=== PATIENT | male | born 1945 | race Caucasian/White ===

== ENCOUNTER 2016-02-23 09:57 | Emergency (ER) | payer OTHER ==
[~2016-02-23] VITALS: Ht 188 cm; Wt 107.0 kg
[~2016-02-23 09:57] MED LIST: ACIDOPHILUS1 CAP PO; AQUAPHOR396 GM TOP; CYMBALTA30 M1 PO; ELOCON0.1% TOP; FOLIC ACID 1 MG PO; GLIMEPIRIDE2 MG PO; KEFLEX500 M1 PO; LYRICA100 M1 PO; MEDROL4 M2 PO; METFORMIN HCL500 M3 PO; PERCOCET 325 MG1 TA2 PO; PRILOSEC 20MG C20 MG PO; PROAIR HFA8.5 GM INH; SOMA 350MG TAB350 MG PO; TEMOVATE15 GM TOP; TRIAMCINOLONE A15 G3 TOP; ULTRAM(MONOGRAP50 MG PO; VICODIN 5-3001 EACH PO; VICODIN5-300 PO; ZITHROMAX250 M2 PO
--- NOTE | 2016-02-23 10:27 | ED ANKLE/FOOT INJURY COMPLAINT ---
History of Present Illness General Chief Complaint: Foot or Ankle Injury Stated Complaint: R TOE INFECTED HX OF DIABETES Source: patient Exam Limitations: no limitations Vital Signs & Intake/Output Vital Signs & Intake/Output Vital Signs Date Time Temp Pulse Resp B/P Pulse O2 O2 Flow FiO2 Ox Delivery Rate 02/22 1230 99.1 95 140/81 98 02/22 1115 97 02/22 1005 98.1 88 20 136/91 97 Room Air Room Air Allergies Coded Allergies: morphine (ITCHING 07/26/15) Reconcile Medications Albuterol Sulfate (Proair Hfa) 90 MCG HFA.AER.AD 2 PUF INH Q4-6 PRN PRN DYSPNEA WITH SPACER Cephalexin (Keflex) 500 MG CAPSULE 1 CAP PO TID INFECTION Duloxetine Hydrochloride (Cymbalta) 30 MG CAPSULE.DR 1 CAP PO DAILY neuropathic pain (Reported) Glimepiride 2 MG TABLET 1 TAB PO DAILY diabetes (Reported) Hydrocodone/Acetaminophen (Vicodin 5-300 MG Tablet) 1 EACH TABLET 1 TAB PO BID CHRONIC SHOULDER PAIN (Reported) Metformin HCl 500 MG TABLET 1 TAB PO BID diabetes (Reported) Omeprazole (Prilosec) 20 MG CAPSULE.DR 1 CAP PO DAILY GERD (Reported) Oxycodone HCl/Acetaminophen (Percocet 5-325 MG Tablet) 5 MG-325 MG TABLET 1 TAB PO BID PRN PAIN Pregabalin (Lyrica) 100 MG CAPSULE 1 CAP PO TID neuropathic pain (Reported) Sulfamethoxazole/Trimethoprim (Bactrim Ds Tablet) 800 MG-160 MG TABLET 1 TAB PO BID CELLULITIS Triage Note: PT TO ED WITH C/O RIGHT BIG TOE PAIN AND INFECTION, HAS BEEN SEEING CLINICAL LABORATORY MEDICAL DIRECTOR [facility]. CALLED THIS AM BUT TOLD TO COME TO ED. Triage Nurses Notes Reviewed? yes HPI: 71-year-old male arrived through triaged to room 2 for evaluation of right great toe pain, swelling and redness that he has had for a few weeks. He has been under the care of company laundry worker in [place] that goes by the name of Dr. Mccrary. 6 months ago he had a nail go into the bottom of his great toe. It has been nonhealing and he started to go to the company laundry worker. He has never had blood work or x-rays but has had antibiotics with no improvement. Today he is here because the pain is unbearable 10 out of 10 aching throbbing. (DARCY MEADE APRN) Past History Travel History Traveled to [place] past 21 day No Medical History Any Pertinent Medical History? see below for history Neurological: NONE EENT: NONE Cardiovascular: hyperlipidemia Respiratory: bronchitis Gastrointestinal: diverticulitis Hepatic: NONE Renal: NONE Musculoskeletal: chronic back pain, osteoarthritis Psychiatric: NONE Endocrine: diabetes Blood Disorders: NONE Cancer(s): NONE LEVELER/Reproductive: NONE History of MRSA: No History of VRE: No History of CDIFF: No Surgical History Surgical History: non-contributory Psychosocial History Who do you live with Spouse Services at Home None What is your primary language Urdu Tobacco Use: Current Daily Use Daily Tobacco Use Amount/Type: => 5 Cigarettes daily ETOH Use: denies use Illicit Drug Use: denies illicit drug use Family History Family History, If Any: FATHER Hypotension BROTHER FH: arrhythmia Hx Contributory? No (DARCY MEADE APRN) Review of Systems Review of Systems Constitutional: Reports: chills. EENTM: Reports: no symptoms. Respiratory: Reports: no symptoms. Cardiovascular: Reports: no symptoms. GI: Reports: no symptoms. Genitourinary: Reports: no symptoms. Musculoskeletal: Reports: joint pain (right great toe). Skin: Reports: no symptoms. Neurological/Psychological: Reports: no symptoms. Hematologic/Endocrine: Reports: no symptoms. Immunologic/Allergic: Reports: no symptoms. All Other Systems: Reviewed and Negative (DARCY MEADE APRN) Physical Exam Physical Exam General Appearance: well developed/nourished, mild distress Head: atraumatic Eyes: Bilateral: PERRL, EOMI. Ears, Nose, Throat: normal pharynx, normal ENT inspection, hearing grossly normal Neck: normal inspection, supple Cardiovascular/Respiratory: regular rate/rhythm Back: normal inspection Leg/Knee/Thigh Left: normal range of motion, normal inspection Leg/Knee/Thigh Right: normal range of motion, normal inspection Ankle Left: normal inspection, normal range of motion Ankle Right: erythema, soft tissue tenderness, swelling, tenderness Neuro/Vascular: normal motor function, normal sensation Psychiatric: awake, alert, oriented x 3 Skin: intact, normal color, warm/dry Diagram Feet Bottom: 1) Erythema with a blister 2) Ulcer noted size of a quarter, closed No erythema Feet Top: 1) Erythema, tenderness, blister (HALINA MCLEOD,DARCY) Progress Differential Diagnosis: cellulitis, gout, osteomyelitis Plan of Care: Orders Procedure Date/time Status BLOOD CULTURE 02/22 1041 Active COMPREHENSIVE METABOLIC PANEL 02/22 1041 Complete CBC WITHOUT DIFFERENTIAL 02/22 1041 Complete Laboratory Tests 02/23/16 1050: Anion Gap 15, Estimated GFR > 60, BUN/Creatinine Ratio 20.0, Glucose 277 H, Calcium 8.8, Total Bilirubin 1.0, AST 32, ALT 52, Alkaline Phosphatase 82, Total Protein 6.8, Albumin 4.0, Globulin 2.8, Albumin/Globulin Ratio 1.4, CBC w Diff NO MAN DIFF REQ, RBC 4.24 L, MCV 89.9, MCH 30.8, RDW 14.5, MPV 7.7, Gran % 77.3 H, Lymphocytes % 14.3 L, Monocytes % 5.9, Eosinophils % 1.5, Basophils % 1.0, Absolute Granulocytes 5.9, Absolute Lymphocytes 1.1 L, Absolute Monocytes 0.5, Absolute Eosinophils 0.1, Absolute Basophils 0.1, PUBS MCHC 34.3 Microbiology 02/22 1050 BLOOD: Blood Culture - RECD 02/22 1041 BLOOD: Blood Culture - ORD Diagnostic Imaging: Viewed by Me: Radiology Read. Discussed w/RAD: Radiology Read. Comments: PATIENT: AUGUSTUS RUBI PRESENT AGE: 71 PATIENT ACCOUNT NO: [id number] : 47 LOCATION: [facility] ORDERING PHYSICIAN: DARCY MEADE APRN SERVICE DATE: 02/23/16 EXAM TYPE: RAD - XRY-TOES, RIGHT EXAMINATION: XR TOE, RIGHT CLINICAL INFORMATION: Diabetes mellitus. Great toe pain with question osteomyelitis COMPARISON: None. TECHNIQUE: AP film of the right foot and 2 views of the right great toe FINDINGS: There is erosive change with sclerosis and soft tissue calcification involving the medial aspect of the first metatarsal head extending to the joint. This could be related to changes of chronic osteomyelitis or gout. No acute fracture or dislocation is identified. There is a marginal erosion at the first tarsometatarsal joint, medial aspect, without associated soft tissue swelling. There is some deformity and hypertrophic change at the base of the proximal phalanx of the left fifth toe at the fifth metatarsophalangeal joint. There is arterial vascular calcification IMPRESSION: Erosive change with sclerosis and soft tissue calcification at the first metatarsal head medial aspect could be related to chronic osteomyelitis or gout. No acute fracture or dislocation DICTATED BY: LESTER BEAN MD DATE/TIME DICTATED:02/23/161155 METAL MOLDER:EARLENE DATE/TIME TRANSCRIBED:02/23/161155 CONFIDENTIAL, DO NOT COPY WITHOUT APPROPRIATE AUTHORIZATION. <Electronically signed in Other Vendor System> SIGNED BY: LESTER BEAN MD 02/22 1205 Explain results of x-ray and blood work to the patient. Antibiotics and pain medication will be given. Encouraged to follow up with his primary care provider for better diabetes management titer glycemic control. (DARCY MEADE APRN) Departure Departure Time of Disposition: 1213 Disposition: HOME OR SELF CARE Condition: Stable Clinical Impression Primary Impression: Cellulitis Qualifiers: Site of cellulitis: other site Qualified Code: L03.818 - Cellulitis of other sites Secondary Impressions: Diabetic ulcer of toe Referrals: RYAN ARZATE MD (PCP/Family) Additional Instructions: Please take both antibiotics as prescribed and follow up with [facility] [place] company laundry worker as already scheduled. There are no signs of active infection but there could be chronic infection in the toe. Percocet has needed for pain. Also please follow-up with your primary care provider for better diabetes management. Departure Forms: Customer Survey General Discharge Information Prescriptions: Current Visit Scripts Oxycodone HCl/Acetaminophen (Percocet 5-325 MG Tablet) 1 TAB PO BID PRN PAIN #10 TAB Sulfamethoxazole/Trimethoprim (Bactrim Ds Tablet) 1 TAB PO BID #20 TAB Cephalexin (Keflex) 1 CAP PO TID #30 CAP (DARCY MEADE APRN) PA/PATHOLOGIST ASSISTANT Co-Sign Statement Statement: ED Attending supervision documentation- [X] I saw and evaluated the patient. I have also reviewed all the pertinent lab results and diagnostic results. I agree with the findings and the plan of care as documented in the PA's/PATHOLOGIST ASSISTANT's documentation. [X] I have reviewed the ED Record and agree with the PA's/PATHOLOGIST ASSISTANT's documentation. [] Additions or exceptions (if any) to the PAs/PATHOLOGIST ASSISTANT's note and plan are summarized below: [] (DAVON DARLING,RIRI)
[2016-02-23 11:08] LABS: ABSOLUTE BASOPHIL COUNT 0.1 /CUMM (0.0-0.2); ABSOLUTE EOSINOPHIL COUNT 0.1 /CUMM (0.0-0.7); ABSOLUTE GRANULOCYTE CT 5.9 /CUMM (1.4-6.5); ABSOLUTE LYMPH COUNT 1.1 /CUMM (1.2-3.4); ABSOLUTE MONOCYTE COUNT 0.5 /CUMM (0.10-0.60); EOSINOPHIL % 1.5 % (0-5); HEMATOCRIT 38.1 % (42-52); MEAN CORPUSCULAR HGB 30.8 PG (27.0-31.0); MEAN CORPUSCULAR HGB CONC 34.3 G/DL (33.0-37.0); MEAN CORPUSCULAR VOLUME 89.9 FL (80.0-94.0); MEAN PLATELET VOLUME 7.7 FL (7.4-10.4); PLATELET COUNT 172 /CUMM (130-400); RBC DISTRIBUTION WIDTH 14.5 % (11.5-14.5); RED BLOOD CELL CT 4.24 /CUMM (4.70-6.10); WHITE BLOOD CELL COUNT 7.7 /CUMM (4.8-10.8)
[2016-02-23 11:09] LABS: GRANULOCYTE % 77.3 % (42.2-75.2)
--- NOTE | 2016-02-23 12:05 | RADIOLOGY REPORT ---
EXAMINATION: XR TOE, RIGHT CLINICAL INFORMATION: Diabetes mellitus. Great toe pain with question osteomyelitis COMPARISON: None. TECHNIQUE: AP film of the right foot and 2 views of the right great toe FINDINGS: There is erosive change with sclerosis and soft tissue calcification involving the medial aspect of the first metatarsal head extending to the joint. This could be related to changes of chronic osteomyelitis or gout. No acute fracture or dislocation is identified. There is a marginal erosion at the first tarsometatarsal joint, medial aspect, without associated soft tissue swelling. There is some deformity and hypertrophic change at the base of the proximal phalanx of the left fifth toe at the fifth metatarsophalangeal joint. There is arterial vascular calcification IMPRESSION: Erosive change with sclerosis and soft tissue calcification at the first metatarsal head medial aspect could be related to chronic osteomyelitis or gout. No acute fracture or dislocation
[2016-02-23] MEDS ORDERED: PERCOCET 5-3251 EACH PO (12:24)
[2016-02-23] MEDS ORDERED: BACTRIM DS TAB1 EACH PO (12:24)
[2016-02-23] MEDS ORDERED: KEFLEX500 M1 PO (12:24)
[2016-02-23 12:30] VITALS: BP 140/81
== END 2016-02-23 12:35 ==
LOC: ERH 09:57
PROVIDERS: Nurse Practitioner Family
DX: E11.622 Type 2 diabetes mellitus with other skin ulcer (principal); L97.519 Non-pressure chronic ulcer of other part of right foot with unspecified severity; L03.115 Cellulitis of right lower limb
CPT/HCPCS: 73660-RT; 87040

== ENCOUNTER 2016-03-18 20:33 | Emergency (ER) | payer OTHER ==
[~2016-03-18] VITALS: Ht 188 cm; Wt 107.0 kg
[~2016-03-18 20:33] MED LIST changes: +BACTRIM DS TAB1 EACH PO; +PERCOCET 5-3251 EACH PO
--- NOTE | 2016-03-18 21:43 | RADIOLOGY REPORT ---
EXAMINATION: XR WRIST, RIGHT CLINICAL INFORMATION: Pain after fall. Rule out fracture. COMPARISON: Prior x-ray from 01/29/2012. TECHNIQUE: AP, lateral, and oblique views of the right wrist. FINDINGS: A chronic fracture deformity of the distal radius is visible. The carpal bones are in normal anatomic alignment. No acute fracture or dislocation is identified. There is mild soft tissue swelling around the wrist. IMPRESSION: Chronic fracture deformity involving the distal radial articular surface. No definite acute fracture visible. Mild soft tissue swelling around the wrist.
--- NOTE | 2016-03-18 22:55 | ED MVC/FALL/TRAUMA COMPLAINT ---
History of Present Illness General Chief Complaint: Fall Stated Complaint: S/P FALL W/LAC Source: patient Exam Limitations: no limitations Vital Signs & Intake/Output Vital Signs & Intake/Output Vital Signs Date Time Temp Pulse Resp B/P Pulse O2 O2 Flow FiO2 Ox Delivery Rate 03/18 2300 98.6 89 18 120/62 100 Room Air 03/18 2108 Room Air 03/18 2106 97.2 100 16 121/69 95 Room Air Allergies Coded Allergies: morphine (HIVES 03/18/16) Reconcile Medications Albuterol Sulfate (Proair Hfa) 90 MCG HFA.AER.AD 2 PUF INH Q4-6 PRN PRN DYSPNEA WITH SPACER Cephalexin (Keflex) 500 MG CAPSULE 1 CAP PO TID INFECTION Duloxetine Hydrochloride (Cymbalta) 30 MG CAPSULE.DR 1 CAP PO DAILY neuropathic pain (Reported) Glimepiride 2 MG TABLET 1 TAB PO DAILY diabetes (Reported) Hydrocodone/Acetaminophen (Vicodin 5-300 MG Tablet) 1 EACH TABLET 1 TAB PO BID CHRONIC SHOULDER PAIN (Reported) Metformin HCl 500 MG TABLET 1 TAB PO BID diabetes (Reported) Omeprazole (Prilosec) 20 MG CAPSULE.DR 1 CAP PO DAILY GERD (Reported) Oxycodone HCl/Acetaminophen (Percocet 5-325 MG Tablet) 5 MG-325 MG TABLET 1 TAB PO BID PRN PAIN Pregabalin (Lyrica) 100 MG CAPSULE 1 CAP PO TID neuropathic pain (Reported) Sulfamethoxazole/Trimethoprim (Bactrim Ds Tablet) 800 MG-160 MG TABLET 1 TAB PO BID CELLULITIS Triage Note: BIBA FROM HOME S/P MECHANICAL TRIP AND FALL IN THE KITCHEN. PT FELL AND ARM GOT CAUGHT ON CABINET, SUSTAINED LAC TO RIGHT ARM. UPON ARRIVAL PT A+OX4, IN NAD, PREHOSPITAL DRESSING IN PLACE. DENIES LOC/HEADSTRIKE Triage Nurses Notes Reviewed? yes Onset: Abrupt Duration: minute(s):, constant, continues in ED Timing: single episode today Injuries/Fall Location: upper extremity Method of Injury: fall No Modifying Factors: none HPI: 71-year-old male comes into the emergency room for further evaluation after falling at home. Patient reports that he leaned forward and could not get back up and kind of fell to his side and came down on the cats dish. Patient has cuts on his right arm. Last tetanus shot unknown. His saw him fall. Patient does admit to having a couple drinks of alcohol tonight but he is alert and oriented and clinically sober here. She reports that he did not hit his head. Patient denies any headache neck pain chest pain abdominal pain. Some mild pain to his right wrist and over the skin abrasions on his right arm. (MALIKA MERRITT) Past History Travel History Traveled to [place] past 21 day No Medical History Any Pertinent Medical History? see below for history Neurological: NONE EENT: NONE Cardiovascular: hyperlipidemia Respiratory: bronchitis Gastrointestinal: diverticulitis Hepatic: NONE Renal: NONE Musculoskeletal: chronic back pain, osteoarthritis Psychiatric: NONE Endocrine: diabetes Blood Disorders: NONE Cancer(s): NONE LOCOMOTIVE OPERATOR/Reproductive: NONE History of MRSA: No History of VRE: No History of CDIFF: No Tetanus Vaccine: 03/18/16 Surgical History Surgical History: non-contributory Psychosocial History Who do you live with Spouse Services at Home None What is your primary language Faroese Tobacco Use: Never used Daily Tobacco Use Amount/Type: => 5 Cigarettes daily ETOH Use: occasional use Illicit Drug Use: denies illicit drug use Family History Family History, If Any: FATHER Hypotension BROTHER FH: arrhythmia Hx Contributory? No (MALIKA MERRITT) Review of Systems Review of Systems Constitutional: Reports: no symptoms. Eyes: Reports: no symptoms. Ears, Nose, Throat, Mouth: Reports: no symptoms. Respiratory: Reports: no symptoms. Cardiovascular: Reports: no symptoms. Gastrointestinal/Abdominal: Reports: no symptoms. Genitourinary: Reports: no symptoms. Musculoskeletal: Reports: see HPI. Skin: Reports: see HPI. Neurological/Psychological: Reports: no symptoms. All Other Systems: Reviewed and Negative (MALIKA MERRITT) Physical Exam Physical Exam General Appearance: well developed/nourished, no apparent distress, alert Head: atraumatic, normal appearance Eyes: Bilateral: normal appearance, PERRL, EOMI. Ears, Nose, Throat, Mouth: hearing grossly normal, moist mucous membrane Neck: normal inspection Respiratory: no respiratory distress Cardiovascular: regular rate/rhythm Back: normal inspection Extremities: SKIN ABRASIONS TO RIGHT ARM, NOTHING SUTURABLE, Neurologic/Psych: awake, alert, oriented x 3, normal gait, normal mood/affect Skin: intact, normal color Core Measures ACS in differential dx? No Severe Sepsis Present: No Septic Shock Present: No (MALIKA MERRITT) Progress Differential Diagnosis: aoritic dissection, abd injury, C/T/L spine injury, ext injury, ICH, pelvis injury, pnemothorax, spinal cord injury Plan of Care: 03/18/2016 11:24:59 PM Skin abrasions are not suturable on exam. Patient clinically looks well. Clinically sober. Walking around here with no difficulty. No evidence of trauma anywhere else. case discussed with dr tracy. Diagnostic Imaging: Viewed by Me: Radiology Read. Discussed w/RAD: Radiology Read. Radiology Impression: XAM TYPE: RAD - XRY-WRIST COMPLETE-RIGHT EXAMINATION: XR WRIST, RIGHT CLINICAL INFORMATION: Pain after fall. Rule out fracture. COMPARISON: Prior x-ray from 01/29/2012. TECHNIQUE: AP, lateral, and oblique views of the right wrist. FINDINGS: A chronic fracture deformity of the distal radius is visible. The carpal bones are in normal anatomic alignment. No acute fracture or dislocation is identified. There is mild soft tissue swelling around the wrist. IMPRESSION: Chronic fracture deformity involving the distal radial articular surface. No definite acute fracture visible. Mild soft tissue swelling around the wrist. DICTATED BY: CHIOMA FERNANDEZ MD DATE/TIME DICTATED:03/18/162133 PHYSICAL EDUCATION PROFESSOR:EARLENE DATE/TIME TRANSCRIBED:03/18/162133 (MALIKA MERRITT) Departure Departure Disposition: HOME OR SELF CARE Condition: Stable Clinical Impression Primary Impression: Skin abrasion Referrals: RYAN ARZATE MD (PCP/Family) Additional Instructions: Watch for signs of infection such as redness swelling discharge fever or chills. Have wound recheck in 2 days by primary care doctor. Return if any other concerns worsening symptoms. Return if any severe headache vomiting neck pain chest pain abdominal pain. Please go over all results of today's visit with your primary care doctor. Contact your primary care doctor to let them know you were here in the emergency room. There may be nonspecific findings which may not be related to your visit today here in the emergency room but may require further evaluation and chronic monitoring by your primary care doctor. If you had a laceration today the chance of foreign body always remains. You should follow-up with your primary care doctor for recheck in 3-5 days for a wound check. If you had an x-ray done there is a chance that a fracture could have been missed on initial read and you should follow-up with your primary care doctor for repeat x-rays if symptoms persist. If your blood pressure was elevated here in the emergency room please have rechecked by her primary care doctor within the next 48 hours by your primary care doctor. If you were prescribed a narcotic here in the emergency room or any type of controlled substances you're not allowed to drive while taking this medication or operate any type of heavy machinery. Narcotics can make you feel lightheaded dizziness nausea and can cause constipation. You may need to case picker a stool softener. Thank you for choosing [facility] emergency room. Please return to the emergency room immediately if you have any other concerns worsening of symptoms. Departure Forms: Customer Survey General Discharge Information (MALIKA MERRITT) PA/MISCELLANEOUS MACHINE OPERATOR Co-Sign Statement Statement: ED Attending supervision documentation- [X] I saw and evaluated the patient. I have also reviewed all the pertinent lab results and diagnostic results. I agree with the findings and the plan of care as documented in the PA's/MISCELLANEOUS MACHINE OPERATOR's documentation. [X] I have reviewed the ED Record and agree with the PA's/MISCELLANEOUS MACHINE OPERATOR's documentation. [] Additions or exceptions (if any) to the PAs/MISCELLANEOUS MACHINE OPERATOR's note and plan are summarized below: [] (BETH DARLING,CHIOMA Whalen) Procedures Laceration/Wound Repair Laceration/Wound Repair: Tetanus Status: not up to date Progress: Multiple skin abrasions and skin tears on right upper extremity, irrigated with Betadine and saline, Steri-Strips use, nonstick dressing with Thuan wrap placed over, (MALIKA MERRITT)
[2016-03-18 23:00] VITALS: BP 120/62
== END 2016-03-18 22:59 ==
LOC: ERH 20:33
DX: S40.811A Abrasion of right upper arm, initial encounter (principal); W19.XXXA Unspecified fall, initial encounter
CPT/HCPCS: 73110-RT; 90471; 90714

== ENCOUNTER 2017-07-03 13:01 | Emergency (ER) | payer OTHER ==
[~2017-07-03] VITALS: Ht 185.4 cm; Wt 111.1 kg
[2017-07-03 14:28] LABS: ABSOLUTE BASOPHIL COUNT 0 /CUMM (0.0-0.2); ABSOLUTE EOSINOPHIL COUNT 0.1 /CUMM (0.0-0.7); ABSOLUTE GRANULOCYTE CT 7.2 /CUMM (1.4-6.5); ABSOLUTE MONOCYTE COUNT 0.4 /CUMM (0.10-0.60); BASOPHIL % 0.4 % (0.0-2.0); EOSINOPHIL % 0.9 % (0-5); GRANULOCYTE % 81.8 % (42.2-75.2); HEMATOCRIT 29.7 % (42-52); MEAN CORPUSCULAR HGB 27.5 PG (27.0-31.0); MEAN CORPUSCULAR HGB CONC 32.7 G/DL (33.0-37.0); MEAN CORPUSCULAR VOLUME 84.3 FL (80.0-94.0); MEAN PLATELET VOLUME 7.8 FL (7.4-10.4); PLATELET COUNT 239 /CUMM (130-400); RBC DISTRIBUTION WIDTH 19.7 % (11.5-14.5); RED BLOOD CELL CT 3.52 /CUMM (4.70-6.10); WHITE BLOOD CELL COUNT 8.8 /CUMM (4.8-10.8)
[2017-07-03 14:36] LABS: PT 14.3 SEC (9.4-12.5); PTT 28 SEC (25-37)
--- NOTE | 2017-07-03 15:56 | ULTRASOUND REPORT ---
EXAMINATION: DUPLEX DOPPLER UPPER EXTREMITY, left CLINICAL INFORMATION: Edema. Swelling. Pain. COMPARISON: None. TECHNIQUE: Duplex Doppler performed of left upper extremity deep veins with grayscale, color Doppler and spectral Doppler examination. FINDINGS: There is no evidence of deep vein thrombosis. Normal vascular flow is seen in the internal jugular vein, subclavian vein, axillary vein, brachial vein, basilic vein, cephalic vein and antecubital vein. IMPRESSION: No evidence of deep vein thrombosis.
[2017-07-03 16:23] VITALS: BP 124/79
--- NOTE | 2017-07-03 16:28 | ED SKIN/ALLERGY COMPLAINT ---
History of Present Illness General Chief Complaint: General Adult Stated Complaint: SIB URGENT CARE FOR L ARM SWELLING, UNSTEADY GAIT Source: patient, old records Exam Limitations: no limitations Vital Signs & Intake/Output Vital Signs & Intake/Output Vital Signs Date Time Temp Pulse Resp B/P B/P Pulse O2 O2 Flow FiO2 Mean Ox Delivery Rate 07/03 1623 98.7 102 18 124/79 97 Room Air ED Intake and Output 07/04 0000 07/03 1200 Intake Total Output Total Balance Patient 111.13 kg Weight Weight Reported by Patient Measurement Method Allergies Coded Allergies: morphine (HIVES 03/18/16) Reconcile Medications Albuterol Sulfate (Proair Hfa) 90 MCG HFA.AER.AD 2 PUF INH Q4-6 PRN PRN DYSPNEA WITH SPACER Cephalexin (Keflex) 500 MG CAPSULE 1 CAP PO TID INFECTION Duloxetine Hydrochloride (Cymbalta) 30 MG CAPSULE.DR 1 CAP PO DAILY neuropathic pain (Reported) Glimepiride 2 MG TABLET 1 TAB PO DAILY diabetes (Reported) Hydrocodone/Acetaminophen (Vicodin 5-300 MG Tablet) 1 EACH TABLET 1 TAB PO BID CHRONIC SHOULDER PAIN (Reported) Metformin HCl 500 MG TABLET 1 TAB PO BID diabetes (Reported) Omeprazole (Prilosec) 20 MG CAPSULE.DR 1 CAP PO DAILY GERD (Reported) Oxycodone HCl/Acetaminophen (Percocet 5-325 MG Tablet) 5 MG-325 MG TABLET 1 TAB PO BID PRN PAIN Pregabalin (Lyrica) 100 MG CAPSULE 1 CAP PO TID neuropathic pain (Reported) Sulfamethoxazole/Trimethoprim (Bactrim Ds Tablet) 800 MG-160 MG TABLET 1 TAB PO BID CELLULITIS Triamcinolone Acetonide 0.1 % OINT...G. 1 QUENTIN TOP BID ECZEMA apply to affected area(s) Triage Note: 72 Y/O MALE SENT BY WALK IN CLINIC FOR EVAL OF L ARM RASH/BRUISING AND SWELLING X APPROX 1 WEEK. PT STATES SYMPTOMS STARTED HIVES ALL OVER BODY. STATES "I SCRATCHED THEM AND IT TURNED TO THIS". PTS LEFT UPPER EXTREMITY SWOLLEN UP INTO BICEP WITH MULTIPLE AREAS DARK PURPLE/RED BRUISING. NO OPEN AREAS NOTED. SKIN WARM TO TOUCH. PT DENIES PAIN. ALSO REPORTS UNSTEADY GAIT X FEW DAYS. AFEBRILE. Triage Nurses Notes Reviewed? yes HPI: 72M PMH diabetes, GERD, spinal stenosis with chronic back pain presents with bilateral forearm pruritis and discoloration. For two days has had forearm itchiness and has been vigorously scratching, leading to bilateral bruising, swelling. Left arm is worse than right. Had exact presentation 2 years ago while inpatient, seen by dermatology, diagnosed with eczema, and prescribed topical steroids. Denies fever, chills, headache, sore throat, n/v, chest pain, SOB, abdominal pain, diarrhea, dysuria. There is no erythema, discharge, tenderness, fluctuance, or warmth. Past History Travel History Traveled to [place] past 21 day No Medical History Any Pertinent Medical History? see below for history Neurological: NONE EENT: NONE Cardiovascular: hyperlipidemia Respiratory: bronchitis Gastrointestinal: diverticulitis Hepatic: NONE Renal: NONE Musculoskeletal: chronic back pain, osteoarthritis Psychiatric: NONE Endocrine: diabetes Blood Disorders: NONE Cancer(s): NONE [employer]PER[employer]/Reproductive: NONE History of MRSA: No History of VRE: No History of CDIFF: No Tetanus Vaccine: 03/18/16 Surgical History Surgical History: non-contributory Psychosocial History Who do you live with Spouse Services at Home None What is your primary language Kiswahili Tobacco Use: Current Daily Use Daily Tobacco Use Amount/Type: =< 4 Cigarettes daily Family History Family History, If Any: FATHER Hypotension BROTHER FH: arrhythmia Hx Contributory? No Review of Systems Review of Systems Constitutional: Reports: no symptoms. EENTM: Reports: no symptoms. Respiratory: Reports: no symptoms. Cardiovascular: Reports: no symptoms. GI: Reports: no symptoms. Genitourinary: Reports: no symptoms. Musculoskeletal: Reports: no symptoms. Skin: Reports: no symptoms. Neurological/Psychological: Reports: no symptoms. Hematologic/Endocrine: Reports: no symptoms. Immunologic/Allergic: Reports: no symptoms. All Other Systems: Reviewed and Negative Physical Exam Physical Exam General Appearance: well developed/nourished, no apparent distress Head: atraumatic, normal appearance Eyes: Bilateral: normal appearance. Ears, Nose, Throat: normal ENT inspection, hearing grossly normal Neck: normal inspection, full range of motion Respiratory: normal breath sounds, chest non-tender, no respiratory distress Cardiovascular: regular rate/rhythm Gastrointestinal: soft, non-tender Back: normal inspection, normal range of motion Extremities: normal inspection, normal range of motion Neurologic/Psych: awake, alert, oriented x 3, normal mood/affect Skin: intact, warm/dry, bilateral formarm ecchymoses with dry rough skin, no evidence of cellulitis/abscess Progress Differential Diagnosis: abscess/cellulitis, allergic reaction, anaphylaxis, angioedema, asthma, contact dermatitis, drug reaction, erythema multiforme, lyme disease, meningitis/sepsis, piyriasis rosea, RMSF, scarlet fever, shingles, syphilis/gonococcemia, toxic shock syndrome, urticaria Plan of Care: Orders Procedure Date/time Status TROPONIN LEVEL 07/03 1336 Complete PARTIAL THROMBOPLASTIN TIME 07/03 1336 Complete PROTHROMBIN TIME 07/03 1336 Complete COMPREHENSIVE METABOLIC PANEL 07/03 1336 Complete CBC WITHOUT DIFFERENTIAL 07/03 1336 Complete Laboratory Tests 07/03/17 1416: Anion Gap 15, Estimated GFR > 60, BUN/Creatinine Ratio 10.0, Glucose 135 H, Calcium 8.8, Total Bilirubin 0.5, AST 29, ALT 22, Alkaline Phosphatase 55, Troponin I < 0.01, Total Protein 6.8, Albumin 4.1, Globulin 2.7, Albumin/ Globulin Ratio 1.5, PT 14.3 H, INR 1.31 H, APTT 28, CBC w Diff NO MAN DIFF REQ , RBC 3.52 L, MCV 84.3, MCH 27.5, MCHC 32.7 L, RDW 19.7 H, MPV 7.8, Gran % 81.8 H, Lymphocytes % 11.8 L, Monocytes % 5.1, Eosinophils % 0.9, Basophils % 0.4, Absolute Granulocytes 7.2 H, Absolute Lymphocytes 1.0 L, Absolute Monocytes 0.4, Absolute Eosinophils 0.1, Absolute Basophils 0 Symptoms consistent with eczema and prior presentation. Will discharge on topical steroids and dermatology referral. 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 Use the Triamcinolone twice a day, and then moisturize liberally 30 minutes later. If you notice and new, worsening, or persistent symptoms, return to ER. Departure Forms: Customer Survey General Discharge Information Prescriptions: Current Visit Scripts Triamcinolone Acetonide 1 QUENTIN TOP BID #80 GM apply to affected area(s)
[2017-07-03] MEDS ORDERED: TRIAMCINOLONE A15 G3 TOP (16:32)
== END 2017-07-03 16:54 ==
LOC: ERH 13:01
PROVIDERS: Physician Assistant Medical
DX: L30.9 Dermatitis, unspecified (principal); M79.89 Other specified soft tissue disorders; R60.9 Edema, unspecified; L29.9 Pruritus, unspecified; E11.9 Type 2 diabetes mellitus without complications